=== PATIENT | female | born 1945 | race Caucasian/White ===

== ENCOUNTER 2021-11-05 02:38 | Inpatient (IN) ==
[2021-11-05] MEDS ORDERED: Melatonin 3 MG TABLET PO PRN (05:28)
[2021-11-05] MEDS ORDERED: Naloxone 0.4 MG/ML INJ IVP PRN (05:28)
[2021-11-05] MEDS ORDERED: Dextrose Gel 15 GM/37.5 ML TUBE PO PRN ×2 (05:30)
[2021-11-05] MEDS ORDERED: D5% in Water 1,000 ML IVC PRN (05:30)
[2021-11-05] MEDS ORDERED: *HR* Dextrose 50 % in Water (Syg) 50 ML SYRINGE IVP PRN (05:30)
[2021-11-05 07:14] LABS: INR 1.1; Prothrombin Time 12.8 Seconds (9.4-12.1)
[2021-11-05 07:14] LABS: Adenovirus Not Detected (Not Detect); Bordetella Pertussis Not Detected (Not Detect); Chlamydophila pneumoniae Not Detected (Not Detect); Coronavirus 229E Not Detected (Not Detect); Coronavirus HKU1 Not Detected (Not Detect); Coronavirus NL63 Not Detected (Not Detect); Coronavirus OC43 Not Detected (Not Detect); Human Metapneumovirus Not Detected (Not Detect); Human Rhinovirus/Enterovirus Not Detected (Not Detect); Influenza A Subtype 2009 H1 Not Detected (Not Detect); Influenza B Not Detected (Not Detect); Mycoplasma pneumoniae Not Detected (Not Detect); Parainfluenza Virus 1 Not Detected (Not Detect); Parainfluenza Virus 2 Not Detected (Not Detect); Parainfluenza Virus 3 Not Detected (Not Detect); Parainfluenza Virus 4 Not Detected (Not Detect); Respiratory Syncytial Virus Not Detected (Not Detect); SARS-CoV-2 Not Detected (Not Detect)
[2021-11-05] MEDS: Vancomycin 500 MG, Sodium Chloride IRRigation 250 ML RC SCH ×5 (07:35→21:22)
[2021-11-05 07:48] LABS: Basophils % 0.1 %; Hematocrit 47.6 % (35.3-44.9); Hemoglobin 14.9 g/dL (11.5-15.4); Immature Granulocytes % 0.4 % (0-4); Lymphocytes # 1.6 K/mcL (0.6-4.6); Lymphocytes % 11.5 %; Mean Corpuscular HGB Conc 31.3 g/dL (31.6-35.5); Mean Corpuscular Hemoglobin 25.5 pg (28.0-33.3); Mean Corpuscular Volume 81.4 fL (83.0-100.0); Mean Platelet Volume 11.5 fL (9.4-12.4); Monocytes # 0.3 K/mcL (0.0-1.3); Neutrophils # 11.9 K/mcL (1.6-8.9); Platelet Count 299 K/mcL (140-400); Red Blood Count 5.85 M/mcL (3.82-4.97); White Blood Count 13.8 K/mcL (4.3-11.1)
[2021-11-05 07:58] LABS: Alanine Aminotransferase 8 Units/L (7-52); Albumin 4.3 g/dL (3.5-5.7); Albumin/Globulin Ratio 1.2 (1.1-2.2); Alkaline Phosphatase 84 Units/L (34-104); Aspartate Amino Transferase 14 Units/L (13-39); BUN/Creatinine Ratio 20 (6-26); Bilirubin,Total 0.5 mg/dL (0.3-1.0); Blood Urea Nitrogen 19 mg/dL (8-23); Calcium 9.2 mg/dL (8.6-10.3); Carbon Dioxide 19 mEq/L (23-29); Chloride 95 mEq/L (98-107); Globulin 3.5 g/dL (2.4-3.5); Glucose 345 mg/dL (70-105); Magnesium 1.6 mg/dL (1.6-2.6); Osmolality,Calculated 292 (280-300); Phosphorous 3.8 mg/dL (2.7-4.5); Potassium 3.7 mEq/L (3.5-5.1); Sodium 133 mEq/L (136-145); Total Protein 7.8 g/dL (6.4-8.9); eGFR For African Americans > 60 (> 60); eGFR For Non-African Americans 56 (> 60)
[2021-11-05] MEDS: Insulin LISPRO 300 UNITS/3 ML VIAL SUBQ SCH ×4 (08:25→21:10)
[2021-11-05] MEDS ORDERED: *HR* Heparin 5,000 UNIT/ML VIAL IVP ONE ×2 (08:36→17:47)
[2021-11-05] MEDS ORDERED: *HR* Heparin 5,000 UNIT/ML VIAL IVP PRN ×4 (08:36→17:47)
[2021-11-05] MEDS ORDERED: Heparin 25,000UNIT/250ML 1/2NS 25,000 UNIT/250 ML IV.SOLN IVC SCH ×2 (08:45→18:00)
[2021-11-05] MEDS ORDERED: Heparin 25,000 UNIT/250 ML 25,000 UNIT/250 ML IV.SOLN IVC SCH (08:45)
[2021-11-05] MEDS: *HR* LORazepam 2 MG/ML VIAL IVP ONE (11:30)
[2021-11-05] MEDS ORDERED: levETIRAcetam 1,000 MG in 0.9 % Sodium Chloride 100 ML IVPB ONE (12:00)
[2021-11-05] MEDS ORDERED: Perflutren Lipid Microsphere 1.3 ML in 0.9 % Sodium Chloride 8.7 ML IVP PRN (17:00)
[2021-11-05] MEDS: *HR* Metoprolol 5 MG/5 ML VIAL IVP PRN (17:07)
[2021-11-05] MEDS: cefTRIAXone 2,000 MG in 0.9 % Sodium Chloride Mini Bag 100 ML IVPB SCH (17:07)
[2021-11-05] MEDS: Acyclovir 550 MG in D5% in Water 250 ML IVPB SCH (17:16)
[2021-11-05] MEDS ORDERED: 0.9 % Sodium Chloride 1,000 ML IVC SCH (18:15)
[2021-11-05] MEDS ORDERED: D5% in Water 1,000 ML IVC SCH (18:15)
[2021-11-05] MEDS: DilTIAZem 50 MG/50 ML IV.SOLN IVC SCH ×2 (18:50→23:54)
[2021-11-05 20:02] LABS: Troponin I 0.12 ng/mL (< 0.04)
[2021-11-05 22:39] LABS: Bilirubin,Urine Negative (Negative); Blood,Urine Large (Negative); Clarity,Urine Clear (Clear); Color,Urine Yellow (Yellow); Glucose,Urine (UA) 300 mg/dL (Normal); Ketones,Urine Trace mg/dL (Negative); Leukocyte Esterase,Urine Negative (Negative); Mucus,Urine Few per lpf (None-Few); Nitrite,Urine Negative (Negative); Protein,Urine >=600 mg/dL (Neg-Trace); RBC,Urine 30-50 per hpf (0-3); Specific Gravity,Urine > 1.030 (1.010-1.025); Urobilinogen,Urine Normal (Normal); WBC,Urine 0-3 per hpf (0-3)
[2021-11-06] MEDS ORDERED: D5 IVPB SCH (02:15)
[2021-11-06] MEDS ORDERED: SULFAMETHOXAZOLE IVPB SCH (02:15)
[2021-11-06] MEDS ORDERED: WATER IVPB SCH (02:15)
[2021-11-06] MEDS ORDERED: TRIMETH IVPB SCH (02:15)
[2021-11-06] MEDS: DilTIAZem 50 MG/50 ML IV.SOLN IVC SCH ×2 (04:55→08:14)
[2021-11-06] MEDS: cefTRIAXone 2,000 MG in 0.9 % Sodium Chloride Mini Bag 100 ML IVPB SCH ×2 (05:22→17:31)
[2021-11-06 05:29] LABS: Basophils % 0.1 %; Hematocrit 51.3 % (35.3-44.9); Hemoglobin 15.4 g/dL (11.5-15.4); Immature Granulocytes % 0.6 % (0-4); Lymphocytes # 2.8 K/mcL (0.6-4.6); Lymphocytes % 13.8 %; Mean Corpuscular Hemoglobin 24.9 pg (28.0-33.3); Mean Corpuscular Volume 82.9 fL (83.0-100.0); Mean Platelet Volume 11.4 fL (9.4-12.4); Monocytes # 0.9 K/mcL (0.0-1.3); Monocytes % 4.6 %; Neutrophils # 16.5 K/mcL (1.6-8.9); Platelet Count 310 K/mcL (140-400); Red Blood Count 6.19 M/mcL (3.82-4.97); Segmented Neutrophils % 80.9 %; White Blood Count 20.4 K/mcL (4.3-11.1)
[2021-11-06 05:46] LABS: Albumin 4.2 g/dL (3.5-5.7); Albumin/Globulin Ratio 1.2 (1.1-2.2); Bilirubin,Total 0.5 mg/dL (0.3-1.0); Calcium 9.2 mg/dL (8.6-10.3); Globulin 3.4 g/dL (2.4-3.5); Potassium 3.9 mEq/L (3.5-5.1); Total Protein 7.6 g/dL (6.4-8.9)
[2021-11-06 05:48] LABS: Chol/HDL Ratio 4.9 (0-4.9)
[2021-11-06] MEDS ORDERED: 0.9 % Sodium Chloride 500 ML IVC ONE (06:27)
[2021-11-06] MEDS: Acyclovir 550 MG in D5% in Water 250 ML IVPB SCH ×2 (06:40→17:30)
[2021-11-06] MEDS: *HR* Metoprolol 5 MG/5 ML VIAL IVP PRN ×2 (08:09→21:00)
[2021-11-06] MEDS: Insulin LISPRO 300 UNITS/3 ML VIAL SUBQ SCH ×4 (08:36→20:55)
[2021-11-06] MEDS: Vancomycin 500 MG, Sodium Chloride IRRigation 250 ML RC SCH ×4 (09:51→20:54)
[2021-11-06] MEDS ORDERED: SODIUM CHLORIDE 0.9% IVPB ONE (10:17)
[2021-11-06] MEDS ORDERED: FOSPHENYTOIN SODIUM IVPB ONE (10:17)
[2021-11-06] MEDS ORDERED: [UNRECOGNIZED DRUG - OTHER] IVPB ONE (10:17)
[2021-11-06] MEDS: *HR* Metoprolol 5 MG/5 ML VIAL IVP SCH ×3 (11:25→23:20)
[2021-11-06] MEDS ORDERED: Insulin DETEMIR 100 UNIT/ML X5UNITS SUBQ SCH ×2 (11:30→15:15)
[2021-11-06 11:33] LABS: Estimated Average Glucose 197 mg/dl; Hemoglobin A1C 8.5 %
[2021-11-06] MEDS ORDERED: 0.9 % Sodium Chloride 500 ML IVC SCH (13:45)
[2021-11-06 14:05] LABS: Red Blood Cell,CSF < 2000 RBC/mcL
[2021-11-06 14:08] LABS: Appearance,CSF Clear (Clear)
[2021-11-06 14:32] LABS: Glucose,CSF 196 mg/dL (40-70); Total Protein,CSF > 200 mg/dL (15-45)
[2021-11-06] MEDS ORDERED: Metoprolol XL (24 HR) Succ 50 MG TAB.ER.24H PO SCH (14:45)
[2021-11-06 14:59] LABS: Protein/Creatinine Ratio,Urine 1.79 mg/mg (0.00-0.20); Sodium, Urine 41.4 mEq/L
[2021-11-06] MEDS: SODIUM CHLORIDE 0.9% IVPB SCH (21:07)
[2021-11-06] MEDS: [UNRECOGNIZED DRUG - OTHER] IVPB SCH (21:07)
[2021-11-06] MEDS: FOSPHENYTOIN IVPB SCH (21:07)
[2021-11-07] MEDS: *HR* Metoprolol 5 MG/5 ML VIAL IVP PRN (01:46)
[2021-11-07] MEDS: *HR* Metoprolol 5 MG/5 ML VIAL IVP SCH ×2 (01:46→05:05)
[2021-11-07] MEDS: Acyclovir 550 MG in D5% in Water 250 ML IVPB SCH (03:36)
[2021-11-07 04:34] VITALS: TEMP 97.7
[2021-11-07] MEDS: FOSPHENYTOIN IVPB SCH (04:45)
[2021-11-07] MEDS: [UNRECOGNIZED DRUG - OTHER] IVPB SCH (04:45)
[2021-11-07] MEDS: SODIUM CHLORIDE 0.9% IVPB SCH (04:45)
[2021-11-07] MEDS: cefTRIAXone 2,000 MG in 0.9 % Sodium Chloride Mini Bag 100 ML IVPB SCH (05:05)
[2021-11-07] MEDS ORDERED: *HR* LORazepam 2 MG/ML VIAL IVP ONE (07:32)
[2021-11-07] MEDS ORDERED: *HR* LORazepam 2 MG/ML VIAL ONE (07:32)
[2021-11-07] MEDS ORDERED: Ringers Solution, Lactated 1,000 ML ONE ×2 (07:34→09:05)
[2021-11-07] MEDS: *HR* LORazepam 2 MG/ML VIAL IVP ONE (07:34)
[2021-11-07] MEDS ORDERED: Ringers Solution, Lactated 1,000 ML IVC ONE ×2 (07:39→09:05)
[2021-11-07] MEDS ORDERED: Artificial Tears SOLN 15 ML BOTTLE BOTH EYES PRN (07:53)
[2021-11-07] MEDS ORDERED: Midazolam HCl 50 MG/100 ML IV.SOLN IVC SCH (08:00)
[2021-11-07] MEDS ORDERED: Artificial Tears SOLN 15 ML BOTTLE BOTH EYES SCH (08:00)
[2021-11-07] MEDS ORDERED: FentaNYL (PF) 1,000 MCG/100 ML IV.SOLN IVC SCH (08:00)
[2021-11-07 08:37] LABS: ABG Base Excess -15 mEq/L (-2 to 3); ABG HCO3 10 mEq/L (21-27); ABG Oxygen Saturation 100 % (95-98); ABG PCO2 21 mmHg (35-45); ABG PH 7.28 pH Units (7.32-7.45); ABG PO2 198 mmHg (85-104); ABG TCO2 10 mEq/L (20-26)
[2021-11-07] MEDS ORDERED: Albumin Human 5% 12.5 GM/250 ML IV.SOLN IVC ONE (08:37)
[2021-11-07] MEDS ORDERED: Sodium Bicarbonate 150 MEQ in Water for inj. (sterile) 1,000 ML IVC SCH (08:38)
[2021-11-07] MEDS ORDERED: Norepinephrine 4 MG/254 ML IV.SOLN IVC SCH (08:45)
[2021-11-07 08:48] LABS: VBG Ionized Calcium 0.97 mmol/L (1.15-1.35)
[2021-11-07 08:51] LABS: Hematocrit 39.3 % (35.3-44.9); Mean Corpuscular HGB Conc 30.8 g/dL (31.6-35.5); Mean Corpuscular Hemoglobin 26.2 pg (28.0-33.3); Mean Corpuscular Volume 85.2 fL (83.0-100.0); Mean Platelet Volume 11.5 fL (9.4-12.4); Nucleated Red Blood Cells 0.2 /100 WBC (0); Platelet Count 234 K/mcL (140-400); Red Blood Count 4.61 M/mcL (3.82-4.97); Red Cell Distribution Width 14.7 % (11.5-14.5); White Blood Count 11.9 K/mcL (4.3-11.1)
[2021-11-07 08:59] LABS: Hemoglobin 12.1 g/dL (11.5-15.4); INR 1.6; Prothrombin Time 18.2 Seconds (9.4-12.1)
[2021-11-07] MEDS ORDERED: Aspirin 81 MG TAB.CHEW PO SCH (09:00)
[2021-11-07] MEDS ORDERED: Pantoprazole 40 MG VIAL IVP SCH (09:00)
[2021-11-07] MEDS ORDERED: Chlorhexidine Rinse 15 ML MOUTHWASH MM SCH (09:00)
[2021-11-07 09:01] LABS: Activated Partial Thrombo Time 33.5 Seconds (26.0-36.0)
[2021-11-07] MEDS ORDERED: Vasopressin 40 UNIT in D5% in Water 100 ML IV SCH (09:15)
[2021-11-07 09:17] LABS: Albumin 2.3 g/dL (3.5-5.7); Albumin/Globulin Ratio 1.2 (1.1-2.2); Bilirubin,Direct 0.2 mg/dL (0.0-0.2); Bilirubin,Indirect 0.4 mg/dL (0.0-1.0); Bilirubin,Total 0.6 mg/dL (0.3-1.0); Calcium 7.6 mg/dL (8.6-10.3); Globulin 1.9 g/dL (2.4-3.5); Magnesium 2.5 mg/dL (1.6-2.6); Phosphorous 8.3 mg/dL (2.7-4.5); Potassium 3.5 mEq/L (3.5-5.1); Total Protein 4.2 g/dL (6.4-8.9)
[2021-11-07 10:01] VITALS: O2SAT 100
[2021-11-07 10:13] VITALS: BP 54/27; PULSE 88
[2021-11-07 10:13] LABS: Lymphocytes # 3.8 K/mcL (0.6-4.6); Neutrophils # 7.1 K/mcL (1.6-8.9)
[2021-11-07 10:14] LABS: Anisocytosis 1+ (Not Present); Platelet Estimate Normal (Normal); Reactive Lymphocytes Present (Not Present)
[2021-11-07] MEDS ORDERED: *HR* EPINEPHrine 1 MG/10 ML SYRINGE IVP ONE (11:13)
[2021-11-07] MEDS ORDERED: levETIRAcetam 1,000 MG in 0.9 % Sodium Chloride 100 ML IVPB SCH (21:00)
[2021-11-09 18:41] LABS: Toxoplasma gondii Source CSF
[2021-11-11 10:57] LABS: HSV 1 Glycoprotein G IgG CSF 0.04 IV (<=0.89); HSV 2 Glycoprotein G IgG CSF 0.04 IV (<=0.89)
== END 2021-11-07 11:14 | disposition expired | DRG 208 ==
LOC: 3BNU → 2NNU 11-06 01:42
PROVIDERS: ADMIT Internal Medicine; ATTEND Internal Medicine